=== PATIENT | female | born 1990 | race Caucasian/White ===

== ENCOUNTER 2023-05-12 14:04 | Outpatient (CLI) | payer MEDICAID, SELFPAY ==
--- NOTE | 2023-05-12 14:30 | CRLHL7_ITS ---
For Patients: As a result of the Century Cures Act, medical imaging exams and procedure reports are released immediately into your electronic medical record. You may view this report before your referring provider. If you have questions, please contact your health care provider. INDICATION: Third trimester scan, evaluate growth. COMPARISON: none TECHNIQUE: Real time santos scale imaging of the fetus was performed. FINDINGS: Sonographic imaging demonstrates a single living intrauterine gestation. Fetus demonstrates a regular cardiac rate of 169 beats per minute. Fetus has a vertex position. The placenta lies anteriorly. Amniotic fluid volume appears normal and there is a single deepest vertical pocket: 6.2 cm. The estimated weight is 2278gm which lies at the 66th %. BPD less than 3rd percentile. HC 10th percentile. AC greater than 97th percentile. FL 16th percentile. The HC/AC ratio measures 0.93 range (0.96-1.12). IMPRESSION: Sonographic gestational age 32 weeks 5 days and sonographic due date 07/02/2023. Good correlation with dates. Estimated weight 66th percentile. Abdominal circumference greater than 97th percentile. HC less than 3rd percentile. Dictated by Maurisio Roth MD @ 05/14/2023 2:34:47 PM (Electronically Signed)
== END 2023-05-12 14:05 | disposition home or self-care (01) ==
PROVIDERS: PCP Advanced Practice Midwife; Visit Provider Advanced Practice Midwife
DX: Z34.83 Encounter for supervision of other normal pregnancy, third trimester; Z3A.32 32 weeks gestation of pregnancy
CPT/HCPCS: 76815; T1013